=== PATIENT | male | born 1950 | race Caucasian/White ===

== ENCOUNTER 2022-12-10 07:13 | Inpatient (IN) ==
--- NOTE | 2022-11-22 16:19 | PAT Medication Instructions ---
Medication Instructions Date of Service November 22, 2022 Home Medications buspirone 15 mg tablet 15 mg PO HS ezetimibe 10 mg tablet 10 mg PO HS fluticasone 250 mcg-salmeterol 50 mcg/dose blistr powdr for inhalation (Wixela Inhub) 1 inh inhalation QAM glyburide micronized 4.5 mg tablet 4.5 mg PO QAM losartan 50 mg tablet 50 mg PO QAM melatonin 3 mg tablet 6 mg PO HS PRN Sleep metoprolol tartrate 25 mg tablet 25 mg PO HS mirtazapine 15 mg tablet 15 mg PO HS montelukast 10 mg tablet 10 mg PO HS omeprazole 20 mg tablet,delayed release 40 mg PO QAM primidone 50 mg tablet 50 mg PO TID ropinirole 1 mg tablet 1 mg PO BID rosuvastatin 40 mg tablet 40 mg PO QAM sertraline 100 mg tablet 100 mg PO HS DO NOT take the morning of surgery glyburide micronized 4.5 mg tablet 4.5 mg PO QAM losartan 50 mg tablet 50 mg PO QAM Take morning of surgery With a small sip of water, OTHERWISE NOTHING TO EAT OR DRINK AFTER MIDNIGHT: fluticasone 250 mcg-salmeterol 50 mcg/dose blistr powdr for inhalation (Wixela Inhub) 1 inh inhalation QAM omeprazole 20 mg tablet,delayed release 40 mg PO QAM primidone 50 mg tablet 50 mg PO TID ropinirole 1 mg tablet 1 mg PO BID rosuvastatin 40 mg tablet 40 mg PO QAM Take evening before surgery buspirone 15 mg tablet 15 mg PO HS ezetimibe 10 mg tablet 10 mg PO HS melatonin 3 mg tablet 6 mg PO HS PRN Sleep (if needed) metoprolol tartrate 25 mg tablet 25 mg PO HS mirtazapine 15 mg tablet 15 mg PO HS montelukast 10 mg tablet 10 mg PO HS primidone 50 mg tablet 50 mg PO TID ropinirole 1 mg tablet 1 mg PO BID sertraline 100 mg tablet 100 mg PO HS Other Notes If you have any questions please call us at [phone] or [phone] or [phone] or [phone]
--- NOTE | 2022-11-26 12:46 | Anesthesiology Consultation ---
Date of Service November 26, 2022 Assessment & Plan (1) Encounter for pre-operative examination: - Check BSG AM DOS - Covid screening: Per assessment consultant on 11/26/22: No known infectious disease contacts or current infectious disease symptoms in past 10 days. No COVID positive test result in the past 90 days noted. - Cardiology note (11/22/22): "cleared at low cardiac risk for upcoming surgery" - Abnormal preop CXR: Per CXR performed 11/26/22, there is a "focal hazy appearance at the right lower lung zone which may represent overlying soft tissue or an area of scarring. This is not confirmed on the lateral view. However, in the absence of prior studies, this should be further evaluated with a follow-up chest CT to exclude the possibility of an abnormality within the right lung." > Note written to PCP- Awaiting PCP response regarding preop CXR (Dr. Pillo Bautista). Chart Review Chart Review: Patient seen in Pre Admission Testing Teaching & Discussion Pre-Anesthesia Teaching/Discussion Notes: Instructed NPO after midnight before surgery,except medications with 15 cc of water. Medication instructions provided according to the PAT guidelines. History Surgery Operation Date: 12/10/22 10:05 Proposed Procedures p L3-L5 Decompression and Fusion, Spinal Cord Monitoring - Jason Gillespie, Height/Weight Height: 5 ft 6 in Weight: 88.9 kg Allergies Allergy/AdvReac Type Severity Reaction Status Date / Time lisinopril AdvReac Unknown Cough Verified 11/22/22 14:46 Medications Home Medications Medication Instructions Recorded Confirmed Last Taken buspirone 15 mg tablet 15 mg PO HS 11/22/22 11/22/22 Unknown ezetimibe 10 mg tablet 10 mg PO HS 11/22/22 11/22/22 Unknown fluticasone 250 mcg-salmeterol 50 1 inh inhalation QAM 11/22/22 11/22/22 Unknown mcg/dose blistr powdr for inhalation (Wixela Inhub) glyburide micronized 4.5 mg tablet 4.5 mg PO QAM 11/22/22 11/22/22 Unknown losartan 50 mg tablet 50 mg PO QAM 11/22/22 11/22/22 Unknown melatonin 3 mg tablet 6 mg PO HS PRN Sleep 11/22/22 11/22/22 Unknown metoprolol tartrate 25 mg tablet 25 mg PO HS 11/22/22 11/22/22 Unknown mirtazapine 15 mg tablet 15 mg PO HS 11/22/22 11/22/22 Unknown montelukast 10 mg tablet 10 mg PO HS 11/22/22 11/22/22 Unknown omeprazole 20 mg tablet,delayed 40 mg PO QAM 11/22/22 11/22/22 Unknown release primidone 50 mg tablet 50 mg PO TID 11/22/22 11/22/22 Unknown ropinirole 1 mg tablet 1 mg PO BID 11/22/22 11/22/22 Unknown rosuvastatin 40 mg tablet 40 mg PO QAM 11/22/22 11/22/22 Unknown sertraline 100 mg tablet 100 mg PO HS 11/22/22 11/22/22 Unknown Past Medical History Medical History Asthma CAD (coronary artery disease) Noted per cardiology records Patient denies Depression Diabetes GERD (gastroesophageal reflux disease) History of skin cancer 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), [facility] [place] History of stroke 2017- no deficits HTN (hypertension) Hyperlipidemia Mitral valve disease MV repair (2011) Paroxysmal atrial fibrillation Patient denies Per cardiology records, Hx Maze procedure (2011) Restless leg syndrome Sleep apnea CPAP (compliant) Exercise / Class Metabolic Activity II 4-5 Yardwork/Stairs/Walk up hill (one FS (no CP, no SOB)) Past Family History Family History Other No family history of adverse response to anesthesia Past Surgical History Surgical History History of cardioversion 2008 History of carpal tunnel surgery of right wrist History of esophagogastroduodenoscopy (EGD) History of lung surgery lung herniation x2 (r/t complications from MV repair) - 2011 + 2012, no issues since History of prostate surgery History of surgical amputation of finger of right hand Partial ring finger r/t traumatic injury History of vasectomy Hx of cardiac catheterization 2008 Hx of cholecystectomy Hx of colonoscopy Hx of inguinal hernia repair Hx of mitral valve repair 2011- [facility] [place] Hx of tooth extraction Past Anesthesia History No Hx of Anesthesia Complications and No Family Hx of Anesthesia Complications History of PONV No Hx of PONV and No Hx of Motion Sickness Social History Smoking Status: Never smoker tobacco type: smokeless tobacco Do You Dip or Chew Tobacco: Yes (Advised none DOS) Hx Alcohol Use: Yes Alcohol type: beer alcohol intake frequency: 0-2 drinks per day (1 beer/day) Hx Substance Use: No substance use type: does not use Review of Systems Patient denies chest pain, shortness of breath, dyspnea on exertion, fever, chills, cough, wheezing, palpitations. Physical Exam Vital Signs VITALS BP 133/83 P 69 TEMP 98.4 SP02 95%RA RESP 16 PHYSICAL Full cervical extension range of motion. Full TMJ range of motion. TMD 3 finger breaths Mallampati Score 3 Dentition: upper full plate Lungs: clear throughout to auscultation Cardiac: regular rate and rhythm, no murmurs noted Spine: normal Carotid arteries: negative bruit Extremities: no LE edema Lab Results Anesthesia Preop Results Results Anesthesia Widget: Na 138 mmol/L (136-145) 11/26/22 K 4.6 mmol/L (3.5-5.1) 11/26/22 Cl 104 mmol/L (98-107) 11/26/22 CO2 29 mmol/L (21-32) 11/26/22 BUN 14 mg/dl (6-23) 11/26/22 Creat 1.14 mg/dl (0.6-1.4) 11/26/22 Glucose Level 100 mg/dl (70-99(Fasting)) H 11/26/22 PT 12.5 Seconds (9.0-12.0) H 11/26/22 PTT 27.3 Seconds (21.0-31.0) 11/26/22 INR 1.2 (0.9-1.1) H 11/26/22 Urine Color Yellow 11/26/22 Urine Appearance Clear (Clear) 11/26/22 Urine pH 7.0 (4.5-7.5) 11/26/22 Urine Specific [place] 1.019 (1.000-1.030) 11/26/22 Urine Protein Negative (Negative) 11/26/22 Urine Glucose (UA) Negative (Negative) 11/26/22 Urine Ketones Negative (Negative) 11/26/22 Urine Blood Negative (Negative) 11/26/22 Urine Nitrite Negative (Negative) 11/26/22 Urine Bilirubin Negative (Negative) 11/26/22 Urine Urobilinogen Negative (Negative) 11/26/22 Urine Leukocyte Esterase Negative (Negative) 11/26/22 Blood Type A Negative 11/26/22 Antibody Screen NEGATIVE 11/26/22 Testing Laboratory Results 11/19/22 WBC 6.9 H/H 14.3/43 PLATELETS 291 A1C 5.7% Electrocardiogram Date: 11/05/22 SR with first degree AVB at 72bpm. iRBBB. Chest X-Ray Date: 11/26/22 FINDINGS: There are low lung volumes. The cardiac silhouette is mildly enlarged. A cardiac valve prosthesis is noted. No pneumothorax. No pleural effusions. Prior cholecystectomy. Mild diffuse interstitial thickening. This is likely chronic. Mild anterior wedging within the upper lumbar spine is likely chronic. Focal hazy appearance at the right lower lung zone which may represent overlying soft tissue or an area of scarring. This is not confirmed on the lateral view. IMPRESSION: Focal hazy appearance at the right lower lung zone which may represent overlying soft tissue or an area of scarring. This is not confirmed on the lateral view. However, in the absence of prior studies, this should be further evaluated with a follow-up chest CT to exclude the possibility of an abnormality within the right lung. This report was called/faxed to the referring physician following dictation. Echocardiogram Date: 05/21/21 LVEF 40-45%. Mild LV systolic dysfunction. "Satisfactory MV repair with trace mitral regurgitation" Stress Test Date: 07/06/21 No significant ischemia. Fixed perfusion defect likely related to diaphragmatic attentuation in the inferolateral segment. Stress ECG test results normal. EF 60-65%.
[~2022-12-10 07:13] MED LIST: ACETAMINOPHEN 500 MG TAB PO SCH; CeleBREX 200 MG CAP PO SCH; GABAPENTIN 300 MG CAP PO SCH; LR 15ML/HR IV SCH; LR 60ML/HR IV SCH; ceFAZolin 2000MG 2,000 MG/15 ML SYR IV SCH
[2022-12-10] MEDS ORDERED: fentaNYL citrate PF 100 MCG/2 ML VIAL ONE ×2 (08:30→10:13)
--- NOTE | 2022-12-10 08:48 | History & Physical Bridge Note ---
Date of Service December 10, 2022 History & Physical Bridge Note I have examined the patient, reviewed the History & Physical and in the interval since the performance of the History & Physical I have noted the following changes of clinical significance: no changes noted
[2022-12-10] MEDS ORDERED: ePHEDrine sulfate 50 MG/ML AMP IV PRN (08:49)
[2022-12-10] MEDS ORDERED: ONDANSETRON INJ 2 MG/ML 2 ML VIAL IV PRN ×2 (08:49→13:17)
[2022-12-10] MEDS ORDERED: HYDROmorphone INJ 1 MG/ML SYRINGE IV PRN ×2 (08:49→13:17)
[2022-12-10] MEDS ORDERED: ATROPINE SULFATE 0.1 MG/ML 10ML SYR IV PRN (08:49)
--- NOTE | 2022-12-10 08:49 | History & Physical Report ---
Date of Service December 10, 2022 Assessment & Plan (1) Neurogenic claudication due to lumbar spinal stenosis: Plan: L3-L5 decompression and fusion History of Present Illness Chief Complaint: Back and leg pain Primary Care Provider: Pillo Bautista DO This is a 71-year-old male who presents with chronic persistent back and bilateral leg pain after failing course of nonoperative care is here for surgical invention. Allergies Allergy/AdvReac Type Severity Reaction Status Date / Time lisinopril AdvReac Unknown Cough Verified 12/10/22 08:09 Home Medications Medication Instructions Recorded Confirmed Type buspirone 15 mg tablet 15 mg PO HS 11/22/22 12/10/22 History ezetimibe 10 mg tablet 10 mg PO HS 11/22/22 12/10/22 History fluticasone 250 mcg-salmeterol 50 1 inh inhalation QAM 11/22/22 11/22/22 History mcg/dose blistr powdr for inhalation (Wixela Inhub) glyburide micronized 4.5 mg tablet 4.5 mg PO QAM 11/22/22 12/10/22 History losartan 50 mg tablet 50 mg PO QAM 11/22/22 11/22/22 History melatonin 3 mg tablet 6 mg PO HS PRN Sleep 11/22/22 11/22/22 History metoprolol tartrate 25 mg tablet 25 mg PO HS 11/22/22 11/22/22 History mirtazapine 15 mg tablet 15 mg PO HS 11/22/22 11/22/22 History montelukast 10 mg tablet 10 mg PO HS 11/22/22 11/22/22 History omeprazole 20 mg tablet,delayed 40 mg PO QAM 11/22/22 11/22/22 History release primidone 50 mg tablet 50 mg PO TID 11/22/22 11/22/22 History ropinirole 1 mg tablet 1 mg PO BID 11/22/22 11/22/22 History rosuvastatin 40 mg tablet 40 mg PO QAM 11/22/22 11/22/22 History sertraline 100 mg tablet 100 mg PO HS 11/22/22 11/22/22 History Past Med/Surg History Medical History Asthma CAD (coronary artery disease) Noted per cardiology records Patient denies Depression Diabetes GERD (gastroesophageal reflux disease) History of skin cancer 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), [facility] [place] History of stroke 2017- no deficits HTN (hypertension) Hyperlipidemia Mitral valve disease MV repair (2011) Paroxysmal atrial fibrillation Patient denies Per cardiology records, Hx Maze procedure (2011) Restless leg syndrome Sleep apnea CPAP (compliant) Surgical History History of cardioversion 2008 History of carpal tunnel surgery of right wrist History of esophagogastroduodenoscopy (EGD) History of lung surgery lung herniation x2 (r/t complications from MV repair) - 2011 + 2012, no issues since History of prostate surgery History of surgical amputation of finger of right hand Partial ring finger r/t traumatic injury History of vasectomy Hx of cardiac catheterization 2008 Hx of cholecystectomy Hx of colonoscopy Hx of inguinal hernia repair Hx of mitral valve repair 2011- [facility] [place] Hx of tooth extraction Family History Other No family history of adverse response to anesthesia Social History Smoking Status: Never smoker Second Hand Exposure: No; Do You Dip or Chew Tobacco: Yes (Advised none DOS); Tobacco Cessation Education Requested by Patient: No Hx Alcohol Use: Yes Alcohol type: beer Hx Substance Use: No Preferred Language: Austrian Communication Ability: Effective [employer] Processing Technician Required: No Beliefs That Will Affect Care: None Current Living Situation: Spouse Other Information That Helps Us Care for You: No Feels Safe at Home: Yes Safety Concerns: Feels Safe At This Time Assistive Devices: CPAP, Denture - Upper and Glasses Physical Exam Physical Exam: Patient is alert and oriented Heart regular in rhythm Lungs clear Results & Data Results & Data Vital Signs (Past 12 Hours) Vital Signs Temp Pulse Resp BP Pulse Ox O2 Del Method 12/10/22 07:50 36.8 C 71 18 165/103 H 98 Room Air
[2022-12-10] MEDS ORDERED: PROPOFOL IV EMULSION 10 MG/ML 20 ML VIAL IV ONE (08:57)
[2022-12-10] MEDS ORDERED: LIDOCAINE 2% 2 ML VIAL/AMP(20MG/ML) INFIL ONE (08:57)
[2022-12-10] MEDS ORDERED: ROCURONIUM BROMIDE 10 MG/ML 5 ML VIAL IV ONE ×5 (08:57→11:10)
[2022-12-10] MEDS ORDERED: DEXAMETHASONE SOD INJ 4 MG/ML VIAL ONE (08:57)
[2022-12-10] MEDS ORDERED: BUPIVACAINE/EPINEPHRINE 0.25% 1:200,000 30 ML VIAL ONE (09:17)
[2022-12-10] MEDS ORDERED: ceFAZolin 330 MG/ML 1 GM VIAL ONE (09:17)
[2022-12-10] MEDS ORDERED: ePHEDrine sulfate 50 MG/ML SYR ONE (10:16)
[2022-12-10] MEDS ORDERED: FLOSEAL HEMOSTATIC MATRIX 10ML TOP ONE (10:19)
[2022-12-10] MEDS ORDERED: PHENYLEPHRINE 100MCG/ML 5ML SYR ONE (10:30)
[2022-12-10] MEDS ORDERED: SUGAMMADEX SODIUM 200 MG/2 ML VIAL IV ONE (11:10)
--- NOTE | 2022-12-10 11:50 | Operative Report ---
Post Operative Report Pre & Post Diagnosis Operation Date: 12/10/22 09:05 Pre-Op Diagnosis: Neurogenic claudication due to lumbar spinal stenosis Post-Op Diagnosis: Neurogenic claudication due to lumbar spinal stenosis I identified the patient and participated in the time-out.: Yes Procedure Operation Date: 12/10/22 09:05 Actual Procedures 1. Lumbar decompression bilaterally facetectomies and foraminotomies L2-3, L3-4 and L4-5. #2 posterior spinal fusion L3-L4 L4-5. #3 placed posterior instrumentation L3-L5. #4 interbody fusion L3-L4 L4-5. #5 placement Spira 12 x 26 mm cage at L3-L4 and 13 x 26 mm cage at L4-5. #6 placement locally harvested morselized autograft and posterior gutters. #7 placement of I factor combined with the talus in the interbody space and posterior gutters. Surgeon Jason Gillespie, DO Media Liaison Officer Benito Ortega Estimated Blood Loss 350 Findings See Below The patient is 5 foot 6 weighing over 88 kg with a BMI in excess of 31. Patient's body habitus did contribute to significant technical difficulty required deepest retractors longer instruments in order to perform his procedure. This at least 50% increased operative time. Specimens none Indications This is a 71-year-old male who presents above-mentioned diagnosis after failing course of nonoperative care is here for surgical invention. Description of Procedure Patient was met with identified informed consent obtained. Patient was then taken to the operative suite underwent patient placed in a prone position the [place] table top Eduard frame. All bony prominences well-padded eyes inspected to ensure no external pressure placed upon them. This point the lumbar spine was prepped and draped in a sterile fashion. Sharp dissection with the assistance of Bovie cautery to form down to and exposing the lamina and transverse processes of L3 L4-5 bilaterally. From caudal to cephalad fashion complete laminectomy of L4 L3 and partial laminectomy L2 was performed including bilateral medial facetectomies and foraminotomies addressing severe spinal stenosis. Pedicle screws were then placed at L3 L4-5 bilaterally with assistance of fluoroscopy and appropriate sized lolly placed. By way of a transforaminal approach on the right a complete discectomy of L4-5 was performed endplates curetted to subcortical mean bone and a 13 x 26 mm Spira cage with I factor tapped in position. Then proceeded to L3-L4 and again by way the transforaminal portion right complete discectomy performed endplates guided to subcortically bone and a 12 x 26 mm Spira cage with I factor tapped in position. The rods then locked in final position bilaterally. The transverse processes of L3 L4-5 burred to subcortical bleeding bone. I factor bone of the test and locally harvested morselized autograft was placed in the posterior gutters. 15 round KURTIS drain inserted. The incision was then closed with 1 Vicryl the fascia 2-0 Vicryl subcutaneously and 4 Monocryl for final skin closure. Steri-Strips sterile dressing placed. Patient waken taken to PACU stable condition. Please note spinal cord monitoring was utilized at the procedure no changes noted. Lastly Benito Ortega was present at the entire surgeon while the patient positioning complex portion of the surgery and final skin closure. I attest to the content of the Intraoperative Record and any orders documented therein. Any exceptions are noted below.
--- NOTE | 2022-12-10 12:16 | Fluoroscopy Report ---
FL lumbar spine 2-3V CLINICAL HISTORY: L3-L5 DECOMPRESSION AND FUSION COMPARISON STUDY: None. FLUOROSCOPY TIME: 24 seconds FLUOROSCOPY IMAGES: 2 Ka,r: 19.7 mGy FINDINGS: Posterior decompression and fusion from L3 through L5 with pedicle screws and rods. The judi dware appears intact. Disc spacers are in place. IMPRESSION: Fluoroscopic assistance as above. ACT 112: Negative or not required by law. Electronically signed by: Daniel Squires M.D. 12/10/2022 12:15 PM
[2022-12-10] MEDS ORDERED: HYDROmorphone INJ 2 MG/ML SYR/VIAL ONE (12:58)
--- NOTE | 2022-12-10 13:15 | Anesthesiology Progress Note ---
Date of Service December 10, 2022 Anesthesia Post Procedure Vital Signs Vital Signs: Temp Pulse Resp BP Pulse Ox O2 Del Method O2 Flow Rate 12/10/22 12:30 82 12 123/75 97 Oxymask 3 12/10/22 13:00 36.6 C 80 12 125/76 95 Nasal Cannula 2 12/10/22 12:50 82 12 130/74 93 Nasal Cannula 2 12/10/22 12:40 81 12 127/74 92 Nasal Cannula 2 12/10/22 12:20 76 18 124/82 93 Oxymask 6 12/10/22 12:13 36.6 C 75 18 127/94 95 Oxymask 6 12/10/22 07:50 36.8 C 71 18 165/103 H 98 Room Air Pain Intensity Back: Pain Intensity: 2 Transfer of Care Handoff Completed per policy Notes Mental Status: alert / awake / arousable and participated in evaluation Nausea / Vomiting: adequately controlled Pain: adequately controlled Airway Patency, RR, SpO2: stable & adequate BP & HR: stable & adequate Hydration State: stable & adequate Anesthetic Complications: no major complications apparent and Pt Satisfied with anesthetic care
[2022-12-10] MEDS ORDERED: DO NOT ADMINISTER PNEUMOCOCCAL VACCINE PRN (13:17)
[2022-12-10] MEDS ORDERED: ALUMINUM/MAGNESIUM SUSP 30 ML UDC PO PRN (13:17)
[2022-12-10] MEDS ORDERED: MAGNESIUM HYDROXIDE SUSP 30 ML UDC PO PRN (13:17)
[2022-12-10] MEDS ORDERED: PROMETHAZINE HCL 12.5 MG in SODIUM CHLORIDE 0.9% 50 ML IV PRN (13:17)
[2022-12-10] MEDS ORDERED: SOD PHOSPHATE/SOD BIPHOSPHATE ENEMA 132 ML BTL PR PRN (13:17)
[2022-12-10] MEDS ORDERED: ACETAMINOPHEN 500 MG TAB PO PRN (13:17)
[2022-12-10] MEDS ORDERED: LORazepam 0.5 MG TAB PO PRN (13:17)
[2022-12-10] MEDS ORDERED: ACETAMINOPHEN 1,000 MG/100 ML VIAL IV PRN (13:17)
[2022-12-10] MEDS ORDERED: DO NOT ADMINISTER FLU VACCINE PRN (13:17)
[2022-12-10] MEDS ORDERED: NALOXONE HCL 0.4 MG/1 ML VIAL/CARP IV PRN (13:17)
[2022-12-10] MEDS ORDERED: HYDROmorphone INJ 0.5 MG/0.5 ML SYR IV PRN (13:17)
[2022-12-10] MEDS ORDERED: ONDANSETRON 4 MG OD TAB PO PRN (13:17)
[2022-12-10] MEDS ORDERED: METOCLOPRAMIDE HCL INJ 5 MG/ML 2 ML VIAL IV PRN (13:17)
[2022-12-10] MEDS ORDERED: hydrOXYzine HCl 25 MG TAB PO PRN (13:17)
[2022-12-10] MEDS ORDERED: FAMOTIDINE 20 MG TAB PO PRN (13:17)
[2022-12-10] MEDS ORDERED: MELATONIN 3 MG TAB PO PRN (13:17)
[2022-12-10] MEDS ORDERED: traMADol HCL 50 MG TABLET PO PRN (13:17)
[2022-12-10] MEDS ORDERED: diphenhydrAMINE Capsule 25 MG CAP PO PRN (13:17)
[2022-12-10] MEDS ORDERED: LORazepam 2 MG/1 ML VIAL IV PRN (13:17)
[2022-12-10] MEDS ORDERED: bisacodyL 10 MG SUPP PR PRN (13:17)
[2022-12-10] MEDS: LACTATED RINGER'S 1,000 ML IV SCH ×2 (13:30→18:45)
[2022-12-10] MEDS: PRIMIDONE 50 MG TAB PO SCH ×2 (14:06→19:41)
--- NOTE | 2022-12-10 14:40 | Consultation ---
Date of Consultation December 10, 2022 Assessment & Plan (1) S/P spinal surgery: (2) Neurogenic claudication due to lumbar spinal stenosis: Post op day# 0 S/P L2-L5 decompression and fusion by Dr Verna CONTRERAS#350ml Pain management per ortho Wound management per ortho PT/OT as appropriate DVT prophylaxis per ortho Incentive spirometry Monitor H&H for acute blood loss anemia (3) CAD (coronary artery disease): History per scanned cardiology note Denies CP, SOB Continue aspirin, metoprolol succinate, losartan, atorvastatin (4) Paroxysmal atrial fibrillation: History of cardioversion Not on anticoagulation Regular rhythm per auscultation on exam Continue metoprolol succinate (5) HTN (hypertension): Continue losartan (6) Diabetes mellitus, type II: Unknown A1c Hold oral glycemic agents NovoLog sliding scale per protocol A1c in a.m. (7) Asthma: No signs current exacerbation Continue home inhalers, montelukast (8) GERD (gastroesophageal reflux disease): Continue PPI (9) Sleep apnea: CPAP at bedtime (10) Restless leg syndrome: Continue ropinirole (11) Depression: Continue home medications DVT Prophylaxis SCDs Disposition per primary service Follows with Dr Bautista in [place] for routine care Pt was seen and care coordinated with Dr Villar. See addendum Thank you for this consultation. We will follow the patient with you during their hospital stay. You can reach a member of the [facility] Hospitalist Team 22/11 via [facility] Supervising Physician Co-Signing Physician Notes Pt seen and examined by myself, Christie Villar MD on the day of service. Care was coordinated with Shawna López PA-C. Please refer to her note for additional information. 71yoM with DMII and significant cardiovascular Hx who is s/p lumbar decompression surgery. Stable, pain controlled. Notes he does not like the liquid diet. RRR, using incentive spirometer at bedside. Otherwise as above. History of Present Illness Requesting Physician: Dr Gillespie Reason for Consultation: Post op medical management Attending Physician: Jason Gillespie DO History of Present Illness Patient is 71 y/o M with PMH CAD, PAF, h/o mitral valve repair, DM II, HTN, HLD, asthma, depression, GERD, WILY seen in medical consultation s/p L2-L5 decompression and fusion today by Dr Gillespie. Post op patient reports doing well. Pain is currently controlled. Last BM this morning. Does not have Fabian catheter in place and has not urinated yet since arriving to medical floor. Denies N/V, HAIDER, CP or SOB, HAIDER, dizziness, neck pain, palpitations, cough, rhinorrhea, a bdominal pain, paresthesias, weakness, extremity edema, rashes, urinary symptoms. Allergies Allergy/AdvReac Type Severity Reaction Status Date / Time lisinopril AdvReac Unknown Cough Verified 12/10/22 08:09 Home Medications Medication Instructions Recorded Confirmed Type buspirone 15 mg tablet 15 mg PO HS 11/22/22 12/10/22 History ezetimibe 10 mg tablet 10 mg PO HS 11/22/22 12/10/22 History fluticasone 250 mcg-salmeterol 50 1 inh inhalation BID 11/22/22 12/10/22 History mcg/dose blistr powdr for inhalation (Wix[facility] Inhub) melatonin 3 mg tablet 6 mg PO HS PRN Sleep 11/22/22 12/10/22 History mirtazapine 15 mg tablet 15 mg PO HS 11/22/22 12/10/22 History montelukast 10 mg tablet 10 mg PO HS 11/22/22 12/10/22 History omeprazole 20 mg tablet,delayed 40 mg PO QAM 11/22/22 12/10/22 History release primidone 50 mg tablet 50 mg PO TID 11/22/22 12/10/22 History ropinirole 1 mg tablet 1 mg PO BID 11/22/22 12/10/22 History rosuvastatin 40 mg tablet 40 mg PO QAM 11/22/22 12/10/22 History sertraline 100 mg tablet 100 mg PO HS 11/22/22 12/10/22 History aspirin 81 mg tablet,delayed 81 mg PO DAILY 12/10/22 12/10/22 History release losartan 100 mg tablet 100 mg PO DAILY 12/10/22 12/10/22 History metoprolol succinate 25 mg 25 mg PO HS 12/10/22 12/10/22 History tablet,extended release 24 hr oxycodone 5 mg tablet 5 mg PO Q6H PRN pain #30 tabs 12/10/22 12/10/22 Rx pioglitazone 45 mg tablet 45 mg PO DAILY 12/10/22 12/10/22 History pregabalin 75 mg capsule 75 mg PO BID 12/10/22 12/10/22 History tramadol 50 mg tablet 50 mg PO Q6H PRN pain, moderate 12/10/22 12/10/22 Rx #30 tabs Patient History Medical History (Updated 12/10/22 @ 16:36 by Shawna López PA-C) Asthma CAD (coronary artery disease) Noted per cardiology records Patient denies Depression Diabetes GERD (gastroesophageal reflux disease) History of skin cancer 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), [facility] [place] History of stroke 2017- no deficits HTN (hypertension) Hyperlipidemia Mitral valve disease MV repair (2011) Paroxysmal atrial fibrillation Patient denies Per cardiology records, Hx Maze procedure (2011) Restless leg syndrome Sleep apnea CPAP (compliant) Surgical History (Updated 12/10/22 @ 16:36 by Shawna López PA-C) History of cardioversion 2008 History of carpal tunnel surgery of right wrist History of esophagogastroduodenoscopy (EGD) History of lung surgery lung herniation x2 (r/t complications from MV repair) - 2011 + 2012, no issues since History of prostate surgery History of surgical amputation of finger of right hand Partial ring finger r/t traumatic injury History of vasectomy Hx of cardiac catheterization 2008 Hx of cholecystectomy Hx of colonoscopy Hx of inguinal hernia repair Hx of mitral valve repair 2011- [facility] Hx of tooth extraction Family History Other No family history of adverse response to anesthesia Social History Smoking Status: Never smoker Second Hand Exposure: No; Do You Dip or Chew Tobacco: Yes (Advised none DOS); Tobacco Cessation Education Requested by Patient: No Hx Alcohol Use: Yes Alcohol type: beer Hx Substance Use: No Preferred Language: Indonesian Communication Ability: Effective Agriculture 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 Beliefs That Will Affect Care: None Current Living Situation: Spouse Other Information That Helps Us Care for You: No Feels Safe at Home: Yes Safety Concerns: Feels Safe At This Time Assistive Devices: None Review of Systems Review of Systems: All systems reviewed & are unremarkable except as noted in HPI & below Physical Exam Physical Exam: General: no distress, overweight Head: normocephalic, atraumatic Eyes: conjunctiva non-injected, anicteric ENT: normal inspection external ears, nose, mucous membranes moist Neck: supple, trachea midline Lungs: clear, no respiratory distress, no wheezing/rhonchi/rales CV: RRR, no murmur, no pretibial edema Abd: normal BS, soft, non-tender Back: surgical dressing in place, +KURTIS drain with serosanguineous drainage Ext: no cyanosis, no calf tenderness; bilateral pushes and pulls intact, sensation to light touch intact bilaterally Neuro: A&O x 3, no focal deficits noted, normal affect Skin: warm, dry Results & Data Vital Signs (Past 12 Hours) Vital Signs Temp Pulse Pulse Resp BP Pulse Ox O2 Del Method 12/10/22 14:16 36.8 C 78 17 104/69 97 Nasal Cannula 12/10/22 13:46 Nasal Cannula 12/10/22 13:45 36.5 C 79 17 113/76 97 Nasal Cannula 12/10/22 13:15 36.6 C 79 17 111/77 97 Nasal Cannula 12/10/22 12:30 82 12 123/75 97 Oxymask 12/10/22 13:00 36.6 C 80 12 125/76 95 Nasal Cannula 12/10/22 12:50 82 12 130/74 93 Nasal Cannula 12/10/22 12:40 81 12 127/74 92 Nasal Cannula 12/10/22 12:20 76 18 124/82 93 Oxymask 12/10/22 12:13 36.6 C 75 18 127/94 95 Oxymask 12/10/22 07:50 36.8 C 71 18 165/103 H 98 Room Air O2 Flow Rate 12/10/22 14:16 3 12/10/22 13:46 3 12/10/22 13:45 3 12/10/22 13:15 2 12/10/22 12:30 3 12/10/22 13:00 2 12/10/22 12:50 2 12/10/22 12:40 2 12/10/22 12:20 6 12/10/22 12:13 6 12/10/22 07:50
[2022-12-10] MEDS ORDERED: GLUCOSE 10 TAB/TUBE PO PRN (15:05)
[2022-12-10] MEDS ORDERED: GLUCOSE 40% GEL 15 GM TUBE PO PRN (15:05)
[2022-12-10] MEDS ORDERED: GLUCAGON FOR INJ 1 MG VIAL SQ PRN (15:05)
[2022-12-10] MEDS ORDERED: DEXTROSE 50% 50 ML SYRINGE IV PRN (15:05)
[2022-12-10] MEDS ORDERED: CARBOHYDRATES FOR HYPOGLYCEMIA PO PRN (15:05)
[2022-12-10] MEDS: INSULIN ASPART PER UNIT CHARGE SC SCH ×2 (17:01→21:14)
[2022-12-10] MEDS: oxyCODONE HCL IR 5 MG TAB (IMMEDIATE RELEASE) PO PRN ×2 (18:05→22:24)
[2022-12-10] MEDS: ceFAZolin 2000MG 2,000 MG/15 ML SYR IV SCH (18:33)
[2022-12-10] MEDS: METOPROLOL SUCC 25MG EXT REL TAB PO SCH (19:40)
[2022-12-10] MEDS: MIRTAZAPINE TAB 15 MG TAB PO SCH (19:41)
[2022-12-10] MEDS: SERTRALINE HCL 100 MG TABLET PO SCH (19:41)
[2022-12-10] MEDS: EZETIMIBE 10 MG TAB PO SCH (19:42)
[2022-12-10] MEDS: busPIRone 15 MG TAB PO SCH (19:42)
[2022-12-10] MEDS: rOPINIRole HCL 1 MG TABLET PO SCH (19:42)
[2022-12-10] MEDS: MONTELUKAST SODIUM 10 MG TABLET PO SCH (19:42)
[2022-12-10] MEDS ORDERED: METOPROLOL TARTRATE 25 MG TAB PO SCH (21:00)
[2022-12-10] MEDS: PREGABALIN 75 MG CAP PO SCH (21:11)
[2022-12-10] MEDS: DOCUSATE SODIUM/SENNA 50/8.6MG TAB PO SCH (21:11)
[2022-12-11] MEDS: ceFAZolin 2000MG 2,000 MG/15 ML SYR IV SCH (02:36)
[2022-12-11] MEDS: POLYETHYLENE (MIRALAX) 17 GM PACK PO SCH ×4 (05:11→23:44)
[2022-12-11] MEDS: oxyCODONE HCL IR 5 MG TAB (IMMEDIATE RELEASE) PO PRN ×4 (05:13→22:57)
[2022-12-11 06:12] LABS: Basophils # (auto) 0.03 K/uL (0-0.2); Basophils % (auto) 0.2 %; Eosinophils # (auto) 0.01 K/uL (0-0.50); Eosinophils % (auto) 0.1 %; Hematocrit (blood only) 34.7 % (42.0-52.0); Hemoglobin 11.7 g/dl (14.0-18.0); Immature Granulocytes # (auto) 0.07 K/uL (0.01-0.20); Immature Granulocytes % (auto) 0.5 %; Lymphocytes # (auto) 1.14 K/uL (1.2-3.4); Lymphocytes % (auto) 8.4 %; Mean Corpuscular Hemoglobin 29.9 pg (25.0-34.0); Mean Corpuscular Hgb Conc 33.7 g/dL (32.0-36.0); Mean Corpuscular Volume 88.7 fL (80.0-100.0); Mean Platelet Volume 9.8 fL (9.4-12.4); Monocytes # (auto) 0.99 K/uL (0.11-0.59); Monocytes % (auto) 7.3 %; Neutrophils % (auto) 83.5 %; Platelet Count 240 K/uL (130-400); RDW Coefficient of Variation 13.5 % (11.5-14.5); RDW Standard Deviation 43.8 fL (36.4-46.3); Red Blood Count 3.91 M/uL (4.70-6.10); White Blood Count 13.64 K/ul (4.8-10.8)
[2022-12-11 06:29] LABS: BUN Creatinine Ratio 13.8 (10-20); Calcium 8.7 mg/dl (8.6-10.3); Creatinine Clr Calc Pharmacy 64.9 ml/min; Est GFR (African American) 78.7 ml/min; Est GFR (Non-African American) 67.9 ml/min; Potassium 4.3 mmol/L (3.5-5.1)
--- NOTE | 2022-12-11 07:34 | Orthopedic Progress Note ---
Date of Service December 11, 2022 Assessment & Plan (1) Neurogenic claudication due to lumbar spinal stenosis: Plan: Patient is doing well postop day 1. We will get him up today with physical therapy. We will continue GI DVT prophylaxis and monitoring his glucose levels. We will likely keep him over the weekend and let him go home on Tuesday. Admission and Anticipated Discharge Date Admission Date: December 10, 2022 Subjective Patient was seen bedside in room 375. He is doing well this morning. Overnight he had some pain issues but is doing better now. His leg pain has also improved. He has not developed any shortness of breath. He is tolerating fluid intake. He denies any other numbness, tingling, paresthesias. Physical Exam Physical Exam: On exam he is alert and oriented. He is able to move all extremities. His strength and sensation are both intact his calves are supple nontender his abdomen supple and nontender. His KURTIS drain is in place and holding suction. He has had 30 cc of drainage on the last shift and 50 on the previous Results & Data Vital Signs (Past 12 Hours) Vital Signs Temp Pulse Resp BP Pulse Ox O2 Del Method O2 Flow Rate 12/11/22 06:49 36.6 C 70 16 99/66 L 97 Room Air 12/11/22 02:44 36.9 C 65 18 111/71 95 Room Air 12/10/22 22:56 36.6 C 74 18 102/65 96 Room Air 12/10/22 19:37 36.5 C 75 16 121/78 94 Nasal Cannula 2
[2022-12-11 08:00] LABS: Estimated Average Glucose 128 mg/dl; Hemoglobin A1C 6.1 % (4.5-5.6)
[2022-12-11] MEDS: PREGABALIN 75 MG CAP PO SCH ×2 (08:16→20:57)
[2022-12-11] MEDS: rOPINIRole HCL 1 MG TABLET PO SCH ×2 (08:17→20:56)
[2022-12-11] MEDS: PRIMIDONE 50 MG TAB PO SCH ×3 (08:17→20:56)
[2022-12-11] MEDS: PANTOprazole 40 MG TAB PO SCH (08:18)
[2022-12-11] MEDS: ROSUVASTATIN CALCIUM 20 MG TAB PO SCH (08:18)
[2022-12-11] MEDS: dexAMETHasone 6 MG in SYRINGE 0 ML IV SCH (08:20)
[2022-12-11] MEDS: INSULIN ASPART PER UNIT CHARGE SC SCH ×4 (08:24→21:17)
[2022-12-11] MEDS: SODIUM CHLORIDE 0.9% 1000ML 1,000 ML IV SCH ×2 (08:30→20:57)
[2022-12-11] MEDS ORDERED: GLYBURIDE PO SCH (09:00)
[2022-12-11] MEDS ORDERED: LOSARTAN POTASSIUM 50 MG TAB PO SCH ×2 (09:00)
[2022-12-11] MEDS: FLUTICASONE/VILANTEROL 200/25MCG 14 PUFFS/INHALER INH SCH (09:21)
--- NOTE | 2022-12-11 17:24 | Hospitalist Progress Note ---
Date of Service December 11, 2022 Assessment & Plan (1) S/P spinal surgery: (2) Neurogenic claudication due to lumbar spinal stenosis: Plan: (1) S/P spinal surgery: (2) Neurogenic claudication due to lumbar spinal stenosis: Plan: stable overall monitor Hg (3) CAD (coronary artery disease): Plan: History per scanned cardiology note no cardiac symptoms BP on the lower side hold Losartan IV fluids Continue aspirin, metoprolol succinate, atorvastatin (4) Paroxysmal atrial fibrillation: Plan: History of cardioversion Not on anticoagulation in sinus rhythm Continue metoprolol succinate (5) HTN (hypertension): Plan: Continue losartan (6) Diabetes mellitus, type II: Plan: a1c 6.1 Hold oral glycemic agents NovoLog sliding scale per protocol A1c in a.m. (7) Asthma: Plan: No signs current exacerbation Continue home inhalers, montelukast (8) GERD (gastroesophageal reflux disease): Plan: Continue PPI (9) Sleep apnea: Plan: CPAP at bedtime (10) Restless leg syndrome: Plan: Continue ropinirole (11) Depression: Plan: Continue home medications DVT Prophylaxis SCDs (3) CAD (coronary artery disease): (4) Paroxysmal atrial fibrillation: (5) HTN (hypertension): (6) Diabetes mellitus, type II: (7) Asthma: (8) GERD (gastroesophageal reflux disease): (9) Sleep apnea: (10) Restless leg syndrome: (11) Depression: Admission and Anticipated Discharge Date Admission Date: December 10, 2022 Subjective ff up for s/p back surgery, etc seen resting in chair, comfortable states he feels fine overall back pain minimal ambulating with no problems no chest pain, dyspnea, palpitations, dizziness no other symptoms Review of Systems Review of Systems: all noted and negative except for above Physical Exam Physical Exam: General- oriented x 3, not in distress, speaks in sentences with no effort or accessory muscle use Eyes- anicteric Neck- no JVD Lungs- clear breath sounds bilaterally, no rales/wheezes Heart- normal rate, regular rhythm; no murmurs Abdomen- normal bowel sounds, nondistended, soft, nontender Back- dressing in place: no bleeding or discharge Extremities- no pretibial edema, no calf tenderness Neuro- alert, oriented x 3; no gross focal neurologic deficits Skin- warm & dry Results & Data Results & Data Vital Signs (Past 12 Hours) Vital Signs Temp Pulse Resp BP Pulse Ox O2 Del Method O2 Flow Rate 12/11/22 14:56 36.5 C 70 18 109/71 98 Nasal Cannula 1 12/11/22 13:40 36.7 C 73 18 108/68 96 Room Air 12/11/22 07:25 Room Air 12/11/22 06:49 36.6 C 70 16 99/66 L 97 Room Air all noted and reviewed including below
[2022-12-11] MEDS: MONTELUKAST SODIUM 10 MG TABLET PO SCH (20:56)
[2022-12-11] MEDS: EZETIMIBE 10 MG TAB PO SCH (20:56)
[2022-12-11] MEDS: busPIRone 15 MG TAB PO SCH (20:57)
[2022-12-11] MEDS: SERTRALINE HCL 100 MG TABLET PO SCH (20:57)
[2022-12-11] MEDS: METOPROLOL SUCC 25MG EXT REL TAB PO SCH (20:57)
[2022-12-11] MEDS: DOCUSATE SODIUM/SENNA 50/8.6MG TAB PO SCH (20:57)
[2022-12-11] MEDS: MIRTAZAPINE TAB 15 MG TAB PO SCH (20:57)
[2022-12-12] MEDS: POLYETHYLENE (MIRALAX) 17 GM PACK PO SCH ×4 (05:31→23:44)
--- NOTE | 2022-12-12 07:20 | Orthopedic Progress Note ---
Date of Service December 12, 2022 Assessment & Plan (1) Neurogenic claudication due to lumbar spinal stenosis: Plan: Patient is doing well postoperative day #2. We will continue with GI DVT prophylaxis as well as pain control measures. He will ambulate today with p hysical therapy and nursing staff. Hopefully we will be able to discharge him to home tomorrow. Admission and Anticipated Discharge Date Admission Date: December 10, 2022 Subjective Patient was seen bedside in room 375. He is doing well today. His pain is well controlled. He ambulated with physical therapy yesterday. His leg pain has diminished. He denies any other numbness, tingling, or paresthesias. Physical Exam Physical Exam: On exam he is alert and oriented. His lower extreme motor exam reveals no focal atrophy strength and sensation are both intact. His calves are supple nontender his abdomen soft and nontender. His KURTIS drain is in place and holding suction. His dressing is clean dry and intact. Results & Data Vital Signs (Past 12 Hours) Vital Signs Temp Pulse Pulse Resp BP Pulse Ox O2 Del Method 12/12/22 07:15 36.8 C 72 20 127/81 94 Room Air 12/11/22 20:53 73 129/77 12/11/22 19:32 36.7 C 12/11/22 19:32 75 122/73 97 Room Air 12/11/22 19:26 97 Room Air
[2022-12-12] MEDS: INSULIN ASPART PER UNIT CHARGE SC SCH ×4 (08:30→21:30)
[2022-12-12] MEDS: FLUTICASONE/VILANTEROL 200/25MCG 14 PUFFS/INHALER INH SCH (08:33)
[2022-12-12] MEDS: ROSUVASTATIN CALCIUM 20 MG TAB PO SCH (08:34)
[2022-12-12] MEDS: PANTOprazole 40 MG TAB PO SCH (08:35)
[2022-12-12] MEDS: ASPIRIN 81 MG ECTAB PO SCH (08:35)
[2022-12-12] MEDS: rOPINIRole HCL 1 MG TABLET PO SCH ×2 (08:36→20:20)
[2022-12-12] MEDS: PRIMIDONE 50 MG TAB PO SCH ×3 (08:36→20:20)
[2022-12-12] MEDS: PREGABALIN 75 MG CAP PO SCH ×2 (08:40→20:27)
[2022-12-12] MEDS: dexAMETHasone 6 MG in SYRINGE 0 ML IV SCH (08:41)
[2022-12-12 09:09] LABS: Basophils # (auto) 0.02 K/uL (0-0.2); Basophils % (auto) 0.2 %; Eosinophils # (auto) 0.11 K/uL (0-0.50); Eosinophils % (auto) 0.9 %; Hematocrit (blood only) 34.7 % (42.0-52.0); Hemoglobin 11.2 g/dl (14.0-18.0); Immature Granulocytes # (auto) 0.13 K/uL (0.01-0.20); Immature Granulocytes % (auto) 1.1 %; Lymphocytes # (auto) 1.79 K/uL (1.2-3.4); Lymphocytes % (auto) 15.3 %; Mean Corpuscular Hemoglobin 29.3 pg (25.0-34.0); Mean Corpuscular Hgb Conc 32.3 g/dL (32.0-36.0); Mean Corpuscular Volume 90.8 fL (80.0-100.0); Mean Platelet Volume 9.9 fL (9.4-12.4); Monocytes % (auto) 6.8 %; Neutrophils # (auto) 8.88 K/uL (1.40-6.50); Neutrophils % (auto) 75.7 %; Platelet Count 234 K/uL (130-400); RDW Coefficient of Variation 13.9 % (11.5-14.5); RDW Standard Deviation 46.4 fL (36.4-46.3); Red Blood Count 3.82 M/uL (4.70-6.10); White Blood Count 11.73 K/ul (4.8-10.8)
[2022-12-12] MEDS: SODIUM CHLORIDE 0.9% 1000ML 1,000 ML IV SCH (09:37)
--- NOTE | 2022-12-12 13:44 | Hospitalist Progress Note ---
Date of Service December 12, 2022 delayed entry date of service noted above Assessment & Plan (1) S/P spinal surgery: (2) Neurogenic claudication due to lumbar spinal stenosis: Plan: (1) S/P spinal surgery: (2) Neurogenic claudication due to lumbar spinal stenosis: Plan: stable overall monitor Hg stable BP improved d/c IV fluids (3) CAD (coronary artery disease): Plan: History per scanned cardiology note no cardiac symptoms BP better d/c IV fludis Continue aspirin, metoprolol succinate, atorvastatin (4) Paroxysmal atrial fibrillation: Plan: History of cardioversion Not on anticoagulation in sinus rhythm Continue metoprolol succinate (5) HTN (hypertension): Plan: Continue losartan (6) Diabetes mellitus, type II: Plan: a1c 6.1 Hold oral glycemic agents NovoLog sliding scale per protocol (7) Asthma: Plan: No signs current exacerbation Continue home inhalers, montelukast (8) GERD (gastroesophageal reflux disease): Plan: Continue PPI (9) Sleep apnea: Plan: CPAP at bedtime (10) Restless leg syndrome: Plan: Continue ropinirole (11) Depression: Plan: Continue home medications DVT Prophylaxis SCDs (3) CAD (coronary artery disease): (4) Paroxysmal atrial fibrillation: (5) HTN (hypertension): (6) Diabetes mellitus, type II: (7) Asthma: (8) GERD (gastroesophageal reflux disease): (9) Sleep apnea: (10) Restless leg syndrome: (11) Depression: Plan: Neurogenic Claudication due to Lumbar Spinal Stenosis POD#3 L3-L5 decompression and fusion by Dr. Gillespie Activity and wound care orders as per ortho Pain control with bowel regimen PT/OT Monitor H/H for acute blood loss anemia and transfuse blood products PRN EBL 350cc, hgb stable 11.2 12/12 CAD Appears stable, no reports of chest pain Continue ASA, beta risa, statin Paroxysmal atrial fibrillation History of cardioversion Not on anticoagulation in sinus rhythm Continue metoprolol succinate HTN Losartan placed on hold due to borderline low BPs, BP now improved, can resume Losartan at discharge Diabetes mellitus, type II a1c 6.1 Lantus and Novolog per protocol while hospitalized Asthma No signs current exacerbation Continue home inhalers, montelukast GERD Continue PPI Sleep apnea CPAP at bedtime Restless leg syndrome Continue ropinirole Depression Continue home medications DVT PROPHYLAXIS TEDs/SCDs as per spine ortho Thank you for this consultation. We will follow the patient with you during their hospital stay. You can reach a member of the [facility] Hospitalist Team 22/11 via the [facility] Hospitalist role in [place] Text. Admission and Anticipated Discharge Date Admission Date: December 10, 2022 Subjective ff up for s/p back surgery, etc resting in chair, comfortable states he feels fine overall no chest pain, dyspnea, palpitations, dizziness back pain minimal no other symptoms ambulating with no problems Review of Systems Review of Systems: all noted and negative except for above Physical Exam Physical Exam: General- oriented x 3, not in distress, speaks in sentences with no effort or accessory muscle use Eyes- anicteric Neck- no JVD Lungs- clear breath sounds bilaterally, no rales/wheezes Heart- normal rate, regular rhythm; no murmurs Abdomen- normal bowel sounds, nondistended, soft, nontender Extremities- no pretibial edema, no calf tenderness Back- dressing in place, no bleeding or discharge Neuro- alert, oriented x 3; no gross focal neurologic deficits Skin- warm & dry Results & Data Results & Data Vital Signs (Past 12 Hours) Vital Signs Temp Pulse Resp BP Pulse Ox O2 Del Method 12/12/22 07:15 36.8 C 72 20 127/81 94 Room Air all noted and reviewed including below
[2022-12-12] MEDS: DOCUSATE SODIUM/SENNA 50/8.6MG TAB PO SCH (20:14)
[2022-12-12] MEDS: busPIRone 15 MG TAB PO SCH (20:20)
[2022-12-12] MEDS: SERTRALINE HCL 100 MG TABLET PO SCH (20:20)
[2022-12-12] MEDS: METOPROLOL SUCC 25MG EXT REL TAB PO SCH (20:21)
[2022-12-12] MEDS: EZETIMIBE 10 MG TAB PO SCH (20:21)
[2022-12-12] MEDS: MIRTAZAPINE TAB 15 MG TAB PO SCH (20:21)
[2022-12-12] MEDS: MONTELUKAST SODIUM 10 MG TABLET PO SCH (20:21)
[2022-12-13] MEDS: POLYETHYLENE (MIRALAX) 17 GM PACK PO SCH (05:14)
[2022-12-13] MEDS: PANTOprazole 40 MG TAB PO SCH (08:09)
[2022-12-13] MEDS: PREGABALIN 75 MG CAP PO SCH (08:09)
[2022-12-13] MEDS: ASPIRIN 81 MG ECTAB PO SCH (08:09)
[2022-12-13] MEDS: FLUTICASONE/VILANTEROL 200/25MCG 14 PUFFS/INHALER INH SCH (08:09)
[2022-12-13] MEDS: dexAMETHasone 6 MG in SYRINGE 0 ML IV SCH (08:09)
[2022-12-13] MEDS: ROSUVASTATIN CALCIUM 20 MG TAB PO SCH (08:10)
[2022-12-13] MEDS: PRIMIDONE 50 MG TAB PO SCH (08:10)
[2022-12-13] MEDS: rOPINIRole HCL 1 MG TABLET PO SCH (08:10)
[2022-12-13] MEDS: INSULIN ASPART PER UNIT CHARGE SC SCH (08:19)
--- NOTE | 2022-12-13 10:39 | Discharge Summary ---
Date of Service December 13, 2022 Admission HPI Per Admitting Provider This is a 71-year-old male who presents with chronic persistent back and bilateral leg pain after failing course of nonoperative care is here for surgical invention. Principal Diagnosis Lumbar spinal stenosis with neurogenic claudication Discharge Data Allergies Allergy/AdvReac Type Severity Reaction Status Date / Time lisinopril AdvReac Unknown Cough Verified 12/10/22 08:09 Consultations 12/10/22 13:17 Consult Hospitalist Routine Procedures Performed Operation Date: 12/10/22 09:05 Actual Procedures p L3-L5 Decompression and Fusion, Spinal Cord Monitoring(Bilateral) - Jason Gillespie DO Ordered Studies 12/10/22 09:05 [place] lumbar spine 2-3V Routine Hospital Course (1) Neurogenic claudication due to lumbar spinal stenosis: Patient with lumbar decompression fusion tolerated this well was taken orth opedic for postop lipid postop day 1 is up and ambulating. Postop day #2 and postoperative 3 pain was well controlled production strength testing. KURTIS drain decreasing appropriate. Subsequent discharge home. Discharge orders instructions from the chart for further review. Total Time Total Time Spent Total Time Spent (In Minutes): 20 minutes Discharge Plan Discharge Items Patient Disposition: Home - Self-Care Reason For Visit: Spinal Stenosis, Lumbar Region with Neurogenic Cla Discharge Diagnosis: Lumbar spinal stenosis with neurogenic claudication Activity: As commented below Non-emergency contact: Primary Care Provider Call non-emergency contact if: you have any medication questions Follow-up/Referrals: PCP,NO [Physician] - Diet: Regular Addtl Attending Provider Instructions: ACTIVITY RECOMMENDATIONS: SELF CARE INSTRUCTIONS AFTER THORACIC/LUMBAR FUSIONS 1. You may walk to your tolerance. It is good exercise for your legs and back. Expect some back and intermittent leg aches and pains. 2. You may perform "counter-top" level activities (make a sandwich, tomy with a project, etc.). 3. No bending or lifting of more than 10 pounds or back twisting of any nature (roll like a log when turning in bed). 4. You may ride in a car for 20-30 minutes at a time. No driving until after your first visit with your doctor. 5. Frequent changes of position and restricting sitting to 30 minutes at a time will help limit the amount of back spasms and stiffness you may experience. 6. You may discontinue the use of ambulatory aids (cane, crutches, etc.) once your strength and confidence allow. 7. You may straight line edger the shower and let water strike your incision when you arrive home at least once daily. Do not take a tub bath, sit in a hot tub or go into a swimming pool until after your first recheck in the office. SPECIAL CARE INSTRUCTIONS: VERY IMPORTANT TO READ AND REVIEW A. Your surgical incision has been closed with a cosmetic suture under the skin that will dissolve in about 6 weeks. In 14 days, you can use a pair of clean scissors and cut the suture that is left outside of the skin at the ends of your incision. 1. The small skin tapes can be removed 7 days after surgery if they have not fallen off by that point. 2. You may keep the wound open to air as much as possible to promote healing after post-op day number 5 unless told otherwise by your doctor. 3. If you think the wound looks like it is becoming infected (redness or worsening drainage) and/or you are experiencing fever, chill or worsening back pain and muscle spasms, contact the office so that we may evaluate you as soon as possible. B. Complications are uncommon, but please contact us if you have any signs or symptoms of: 1. wound infection (fever higher than 102.5 degrees F, redness, separation of wound, drainage, or increasing pain from the incision) 2. blood clots in legs (pain, swelling, redness and warmth in legs) 3. urinary tract infection (fever higher than 102.5 degrees F, burning upon urination or increased frequency of urination) 4. nerve problems (inability to walk on your toes or heels, numbness, loss of bowel or bladder control) 5. any other symptoms that concern you C. Please call the office at if you have any concerns or questions about your operation or recovery. D. No smoking! Smoking drastically decreases the chance of a solid fusion. E. Do not take any anti-inflammatory medications (Indocin, Advil, Motrin, Aspirin, Naprosyn, etc.) as these may inhibit the chance of a solid fusion. Tylenol is okay to take for pain. MANAGING PAIN AFTER SPINAL SURGERY 1. Narcotic medication is intended for short-term use and will be provided for surgical pain. Surgical pain usually lasts for a period of 4-6 weeks. Narcotic medication includes Percocet, Vicodin, Darvocet, Tylenol #3 or Lortab. 2. Longer-term pain is more appropriately treated with non-narcotic medication such as Tylenol ES. 3. Muscle spasm is not appropriately treated with narcotics. Muscle relaxers such as Soma, Flexeril or Skelaxin can be used along with Tylenol ES. 4. Remember that we all live with some "aches and pains". This is not unusual or uncommon after an injury or as we get older. a. Back pain is expected and may include muscle spasms for 4 to 6 weeks after surgery. The pain should gradually improve. If the pain worsens for no apparent reason, please contact the office. b. Intermittent leg pain may also be experienced and should not be concerned about unless it worsens for no apparent reason. If so, please contact the office. 5. We will provide appropriate medication within the normal guidelines of their prescribed use. We will also be very cautious and aware of potential abuse and extended duration of patients' medication needs. a. Pain medications are for your comfort and to assist with sleep and rest so that the tissue can heal. They are not provided in order to return to normal activity and should not be used through the day. To do so or worsening pain at night can result from ongoing tissue damage and development of tolerance to the prescribed medicine. 6. Please allow 2-3 days to process refills. Prescriptions will not be mailed but must be picked up at the office. FOLLOW UP VISIT: Keep your scheduled follow-up appointment. Any questions, please call the office at . Pending Studies at Discharge: No Stand-Alone Forms: My [facility] Comecer, Smoking Cessation Medications and DC Order Prescriptions: New tramadol 50 mg tablet 50 mg PO Q6H PRN (Reason: pain, moderate) Qty: 30 0RF oxycodone 5 mg tablet 5 mg PO Q6H PRN (Reason: pain) Qty: 30 0RF Continued primidone 50 mg Tablet 50 mg PO TID fluticasone propion-salmeterol [Wixela Inhub] 250-50 mcg/dose Blister With Device 1 inh INHALATION BID ropinirole 1 mg Tablet 1 mg PO BID sertraline 100 mg Tablet 100 mg PO HS melatonin 3 mg Tablet 6 mg PO HS PRN (Reason: Sleep) montelukast 10 mg Tablet 10 mg PO HS mirtazapine 15 mg Tablet 15 mg PO HS buspirone 15 mg Tablet 15 mg PO HS ezetimibe 10 mg Tablet 10 mg PO HS rosuvastatin 40 mg Tablet 40 mg PO QAM omeprazole 20 mg Tablet,Delayed Release (Dr/Ec) 40 mg PO QAM pioglitazone 45 mg tablet 45 mg PO DAILY losartan 100 mg tablet 100 mg PO DAILY metoprolol succinate 25 mg tablet extended release 24 hr 25 mg PO HS pregabalin 75 mg Capsule 75 mg PO BID aspirin 81 mg Tablet,Delayed Release (Dr/Ec) 81 mg PO DAILY Discharge Orders: Discharge Order (Routine); Ordered 12/13/22 Ordered By: Jason Bueno/Other Patient Handouts: A1C Admission Data Admit Date/Time: 12/10/22 11:53 Attending Provider: Jason Gillespie Admit Provider: Jason Gillespie Primary Care Provider: Pillo Bautista Other Providers: Eloina Nuñez ; [facility] ; Mike Thomas
[2022-12-13] MEDS: oxyCODONE HCL IR 5 MG TAB (IMMEDIATE RELEASE) PO PRN (10:51)
--- NOTE | 2022-12-13 16:51 | Hospitalist Progress Note ---
Date of Service December 13, 2022 Assessment & Plan (1) S/P spinal surgery: (2) Neurogenic claudication due to lumbar spinal stenosis: (3) CAD (coronary artery disease): (4) Paroxysmal atrial fibrillation: (5) HTN (hypertension): (6) Diabetes mellitus, type II: (7) Asthma: (8) GERD (gastroesophageal reflux disease): (9) Sleep apnea: (10) Restless leg syndrome: (11) Depression: Plan: Neurogenic Claudication due to Lumbar Spinal Stenosis POD#3 L3-L5 decompression and fusion by Dr. Gillespie Activity and wound care orders as per ortho Pain control with bowel regimen PT/OT Monitor H/H for acute blood loss anemia and transfuse blood products PRN EBL 350cc, hgb stable 11.2 8/ CAD Appears stable, no reports of chest pain Continue ASA, beta risa, statin Paroxysmal atrial fibrillation History of cardioversion Not on anticoagulation in sinus rhythm Continue metoprolol succinate HTN Losartan placed on hold due to borderline low BPs, BP now improved, can resume Losartan at discharge Diabetes mellitus, type II a1c 6.1 Lantus and Novolog per protocol while hospitalized Asthma No signs current exacerbation Continue home inhalers, montelukast GERD Continue PPI Sleep apnea CPAP at bedtime Restless leg syndrome Continue ropinirole Depression Continue home medications DVT PROPHYLAXIS TEDs/SCDs as per spine ortho Thank you for this consultation. We will follow the patient with you during their hospital stay. You can reach a member of the [facility] Hospitalist Team 22/11 via the [facility] role in [employer]. Admission and Anticipated Discharge Date Admission Date: December 10, 2022 Supervising Physician Co-Signing Physician Notes delayed entry date of service noted above Attending Addendum: care coordinated with PADILLA Shaikh please refer to her notes for full details, I agree with her notes patient seen and examined, records reviewed by myself as well diagnoses and plan of care as per PADILLA Thomas MD Subjective Follow up for medical management, s/p back surgery. Patient seen and examined. Sitting up on the edge of the bed. Eager to be discharged. Pain is well controlled. No chest pain or shortness of breath. Denies lightheadedness and dizziness. Urinating without difficulty and + BM Physical Exam Constitutional: WD/WN, vitals as above Respiratory: normal respiratory effort, lungs clear to auscultation Cardiovascular: Rate/Rhythm: regular rate and regular rhythm Vessels: normal peripheral pulses Extremities: no edema Gastrointestinal (Abdomen): Percussion/Palpation: abdomen soft; abdomen nontender Musculoskeletal: s/p back surgery, pedal pushes and pulls strong BL, dressing CDI Skin: no rashes, warm and dry Neurologic: no focal motor deficits Psychiatric: A+Ox3, euthymic affect Results & Data Results & Data Vital Signs (Past 12 Hours) Vital Signs Temp Pulse Resp BP Pulse Ox O2 Del Method 12/13/22 06:41 36.5 C 71 16 132/79 92 Room Air, CPAP
== END 2022-12-13 11:25 | disposition home or self-care (01) | DRG 455 ==
LOC: ASU 07:13 → 3N 11:53
DX: F32.A Depression, unspecified; Z79.82 Long term (current) use of aspirin; G89.29 Other chronic pain; E11.9 Type 2 diabetes mellitus without complications; Z79.899 Other long term (current) drug therapy; Z88.8 Allergy status to other drugs, medicaments and biological substances; K21.9 Gastro-esophageal reflux disease without esophagitis; I48.0 Paroxysmal atrial fibrillation; I25.10 Atherosclerotic heart disease of native coronary artery without angina pectoris; Z79.51 Long term (current) use of inhaled steroids; J45.909 Unspecified asthma, uncomplicated; M48.062 Spinal stenosis, lumbar region with neurogenic claudication; G47.33 Obstructive sleep apnea (adult) (pediatric); I10 Essential (primary) hypertension; G25.81 Restless legs syndrome